=== PATIENT | female | born 1960 | race Caucasian/White ===

== ENCOUNTER 2021-10-17 09:22 | Outpatient (CLI) | payer MEDICARE ==
[~2021-10-17] VITALS: Ht 198.1 cm; Wt 136.1 kg
[2021-10-17] VITALS (7 sets, daily range): BP systolic 107–146; BP diastolic 51–83
[2021-10-17] MEDS ORDERED: normal saline 500ml IV soln 500 ML IV ONE (10:00)
[2021-10-17] MEDS ORDERED: nitroGLYCERIN 0.4mg SUBLingual tab SL PRN (10:05)
[2021-10-17] MEDS ORDERED: regadenoson 0.4mg/5ml syringe IV ONE (10:30)
== END 2021-10-17 23:59 | disposition home or self-care (01) ==
LOC: RAD 09:22
PROVIDERS: ATTEND Internal Medicine Interventional Cardiology
DX: I48.91 Unspecified atrial fibrillation (principal)
CPT/HCPCS: 78452; 93017; A9500; J2785; J7040

== ENCOUNTER 2022-12-04 14:26 | Outpatient (CLI) | payer OTHER, MEDICARE ==
[2022-12-04] MEDS ORDERED: iohexol 300mg/ml 100ml inj. ONE (14:29)
== END 2022-12-04 23:59 | disposition home or self-care (01) ==
LOC: RAD 14:26
PROVIDERS: ATTEND Internal Medicine
DX: K74.60 Unspecified cirrhosis of liver (principal); R16.1 Splenomegaly, not elsewhere classified; K57.30 Diverticulosis of large intestine without perforation or abscess without bleeding; R11.2 Nausea with vomiting, unspecified; R19.5 Other fecal abnormalities; M47.817 Spondylosis without myelopathy or radiculopathy, lumbosacral region
CPT/HCPCS: 74177; J3490; Q9967